=== PATIENT | female | born 1935 | race Caucasian/White ===

== ENCOUNTER 2019-06-04 19:40 | Inpatient (IN) ==
[2019-06-04] MEDS ORDERED: ZOFRAN IV ONE (20:14)
[2019-06-04] MEDS ORDERED: MORPHINE IV ONE (20:14)
--- NOTE | 2019-06-04 20:24 | PROVIDER DOCUMENTATION ---
This chart was entered by Yvette Jin Scribe, acting as scribe for Erwin Aden MD. HPI-Abdominal Pain/GI Problem - General Chief Complaint: Abdominal Pain Stated Complaint: FLU LIKE SX Time Seen by Provider: 06/04/19 19:55 Source: patient, family (daughter) Allergies/Adverse Reactions: Patient Allergies Allergy/AdvReac Type Severity Reaction Status Date / Time Sulfa (Sulfonamide AdvReac ITCHING Verified 06/04/19 19:47 Antibiotics) Home Medications: Home Medication List Medication Instructions Recorded Confirmed Last Taken Type ATORVAstatin [Lipitor] 40 mg PO DAILY 03/31/19 03/31/19 Unknown History Amlodipine Besylate 1 tab PO DAILY 03/31/19 03/31/19 Unknown History Lisinopril 1 tab PO DAILY 03/31/19 03/31/19 Unknown History Omeprazole 1 tab PO DAILY 03/31/19 03/31/19 Unknown History Dicyclomine [Bentyl] 10 mg PO TID PRN PRN #15 cap 04/01/19 Unknown Rx - History of Present Illness-ABD Nature of Presenting Problems: 84yof presents to ED cc abdominal pain, nausea, vomiting, chills, constipation that started after eating lunch at noon today and is getting worse. Pt reports pain is 8/10. Daughter is at bedside and reports pt has hx of chronic back pain and dementia. Pt denies chest pain/SOB/cough/wheezing/dysuria. Pt looks unwell upon exam. Abdominal Pain Onset Location: reports: periumbilical Pain Radiation: reports: no radiation Quality of Pain: reports: sharp, tightness Severity in ED: reports: moderate Onset/Duration: reports: this afternoon (12pm) Timing: reports: still present, getting worse Activities at Onset: reports: eating Exposure to sick contacts?: No Modifying Factors: improves with: nothing Associated Symptoms: reports: constipation, fever/chills (chills), nausea, vomiting Last BM: 3 days ago Emesis Description: reports: clear Bruising or Bleeding Gums?: No Similar Symptoms Previously?: No Recently seen or treated by another doctor?: No Review of Systems - Adult - REVIEW OF SYSTEMS - ADULT Constitutional: reports: see HPI, chills. denies: fever, fatique Eyes: reports: no symptoms reported Ears, Nose, Mouth & Throat: reports: no symptoms reported Cardiovascular: reports: see HPI. denies: chest pain, palpitations Respiratory: reports: see HPI. denies: cough, shortness of breath, wheezing Gastrointestinal: reports: see HPI, abdominal pain, constipation, nausea, vomiting. denies: diarrhea Genitourinary: reports: see HPI. denies: dysuria, flank pain, hematuria Musculoskeletal: reports: no symptoms reported Integumentary: reports: no symptoms reported Neurological: reports: no symptoms reported Psychiatric: reports: no symptoms reported Endocrine: reports: no symptoms reported Hematologic/Lymphatic: reports: no symptoms reported Allergic/Immunologic: reports: no symptoms reported All Other Systems: Reviewed and Negative Past History - Adult - PAST MEDICAL HISTORY-ADULT Review of Records: reports: Old Records Reviewed, Nursing Assessment Review, Medications Reviewed, Social history reviewed & non-contributory. Major Childhood Illnesses: reports: denies history Cardiovascular: reports: denies history Respiratory: reports: denies history Gastrointestinal: reports: denies history Obstetrical/Gynecological: reports: denies history Genitourinary: reports: denies history Musculoskeletal: reports: denies history Neurological: reports: denies history Endocrine/Immune: reports: denies history Other Conditions: reports: denies history - IMMUNIZATION STATUS Childhood Immunizations: See Nurse Assessment Flu Vaccine: See Nurse Assessment - FAMILY HISTORY Family History: reviewed, not pertinent - SOCIAL HISTORY Smoking: denies Physical Exam-General - PHYSICAL EXAM-ADULT Initial Vital Signs Reviewed: Yes - CONSTITUTIONAL General Appearance: alert. negative: appears well, anxious, combative - EYES Eyes: PERRL/EOMI, pink conjunctivae. negative: photophobia - HEAD, EARS, NOSE, MOUTH & THROAT HENMT: normocephalic/atraumatic, moist mucous membranes. negative: angioedema - NECK Neck: normal inspection - RESPIRATORY Respiratory: chest non-tender, lungs clear, normal breath sounds. negative: stridor, wheezing - CARDIOVASCULAR Cardiovascular: normal peripheral pulses, regular rate, rhythm, no edema. negative: bradycardia, tachycardia - GASTROINTESTINAL (ABDOMEN) Abdominal Exam: abnormal bowel sounds (increased), distended. negative: normal bowel sounds, rigid - MUSCULOSKELETAL Back Exam: normal inspection, no CVA tenderness, no vertebral tenderness Extremity: normal inspection, normal capillary refill. negative: deformity - SKIN Integumentary: normal color. negative: diaphoresis, jaundice - PSYCHIATRIC Psych/Mental Status: normal mood/affect, oriented x 3. negative: anxious, disheveled Progress - PLAN OF CARE/RESULTS Progress/Plan/Lab Results: Vital Signs - 8 hr 06/04/19 19:44 Temperature 98.7 F Pulse Rate 88 Respiratory Rate 20 Blood Pressure 158/81 O2 Sat by Pulse Oximetry 96 Orders Category Date Time Status Saline Loc DIRECTED Care 06/04/19 20:05 Active NPO Diet 06/04/19 20:05 Active CBC WITH ELECTRONIC DIFF [HEME] Stat Lab 06/04/19 20:05 Ordered COMPREHENSIVE METABOLIC PANEL [CHEM] Stat Lab 06/04/19 20:[address] Stat Lab 06/04/19 19:41 Uncollected LIPASE [CHEM] Stat Lab 06/04/19 20:05 Uncollected URINALYSIS W/POSS RFLX CULT [URINALYSIS] Stat Lab 06/04/19 20:05 Uncollected Morphine Med 06/04/19 20:14 Discontinued 4 mg IV NOW ONE Ondansetron [Zofran] Med 06/04/19 20:14 Discontinued 4 mg IV NOW ONE Result Diagrams: 06/04/19 20:20 06/04/19 20:20 - CONSULTS/PCP/HOSPITALIST Notification #1 *Consult/PCP/Hospitalist*: Dr. Shaw, surgeon bone worker Time Discussed: 23:25 Reason/Comments: admit to hospitalist at [facility] Consult Disposition: other Departure - Departure Date of Disposition Decision: 06/04/19 Time of Disposition Decision: 00:04 DIAGNOSIS: Small bowel perforation Disposition: ADMITTED INPATIENT Certified Medical Emergency: Emergent Condition: Stable Additional Instructions: ED Follow Up Instructions: You have been treated by a care provider in the Emergency Department. These instructions are being provided to you so you can have an understanding of how to care for yourself upon discharge. Upon discharge from the Emergency Department, you are responsible for making arrangements for follow-up care by a physician of your choice. Take all prescribed medications as directed. Return to the Emergency Department immediately for any new or worsening symptoms. You may call the Physician Referral phone number at [phone] to obtain a list of Physicians who are taking new patients. Referrals and Follow-Ups: Yuri Allen DO [Primary Care Provider] - - Critical Care Note This patient required my direct & personal management of CC.: No Attestation - Physician/ MAURY Attestation Patient care was provided by Advanced Practice Provider:: No The physician spent face to face time with patient:: Yes Advanced Practice Provider documentation review:: Supervising physician onsite and consulted in the evaluation and care of this patient. The physician did have a face to face encounter with the patient. This chart was documented by the indicated scribe, (Yvette Jin, Peña) and accurately reflects the services I performed and decisions made by me, Erwin Aden MD, as attested by the provider's signature.
[2019-06-04 20:36] LABS: BASO# 0.03 X1000 (0.0-0.2); BASO% 0.2 % (0.0-0.8); EOS# 0.01 X1000 (0.0-0.7); EOS% 0.1 % (0.0-10.0); HEMATOCRIT 33.5 % (37.0-47.0); HEMOGLOBIN 10.6 g/dL (12.0-16.0); IMM GRAN# 0.03 X1000 (0.0-0.04); IMM GRAN% 0.2 % (0.0-0.5); LYMPH# 0.66 X1000 (1.2-3.4); LYMPH% 3.8 % (20.5-51.1); MCHC 31.6 g/dL (33-37); MCV 82.3 FL (81-99); MONO# 0.66 X1000 (0.11-0.59); MONO% 3.8 % (1.7-9.3); MPV 10.3 FL (7.4-10.4); NEUT% 91.9 % (42.2-75.2); PLT 273 X1000 (130-400); RBC 4.07 XMIL (4.2-5.4); RDW 15.4 % (11.5-14.5); WBC 17.49 X1000 (4.8-10.8)
[2019-06-04 21:02] LABS: AGAP 14; ALBUMIN 4.8 g/dL (3.5-5.0); ALKALINE PHOSPHATASE 82 U/L (32-104); BUN 25 mg/dL (8-22); CALCIUM 9.4 mg/dL (8.8-10.2); CHLORIDE 104 mmol/L (98-107); COSMO 288; CREATININE 0.7 mg/dL (0.5-0.9); ESTIMATED GFR > 60; GLUCOSE 166 mg/dL (70-104); GOT 21 U/L (10-30); GPT 13 U/L (10-36); LIPASE 91 U/L (13-60); POTASSIUM 3.8 mmol/L (3.5-5.1); SODIUM 140 mmol/L (136-145); TCO2 22 mmol/L (25-35); TOTAL PROTEIN 7.6 g/dL (6.3-8.3)
[2019-06-04 21:42] LABS: INFLUENZA A NEGATIVE (NEGATIVE); INFLUENZA B NEGATIVE (NEGATIVE)
[2019-06-04 22:27] LABS: URINE SOURCE CLEAN CATCH
[2019-06-04 22:52] LABS: BILIRUBIN URINE NEGATIVE (NEGATIVE); BLOOD URINE NEGATIVE (NEGATIVE); COLOR YELLOW; GLUCOSE URINE NEGATIVE (NEGATIVE); KETONE URINE 20 mg/dL (NEGATIVE); LEUKOCYTES URINE NEGATIVE (NEGATIVE); NITRITE URINE NEGATIVE (NEGATIVE); PROTEIN URINE TRACE mg/dL (NEGATIVE); SP GRAVITY URINE 1.024; TURBIDITY URINE CLEAR (CLEAR); UROBILINOGEN URINE NORMAL (NORMAL)
[2019-06-04 22:53] LABS: UR EPITHELIAL CELLS <10 /HPF (<10); URINE BACTERIA NEGATIVE /HPF; URINE RBC <10 /HPF (<10); URINE WBC <10 /HPF (<10)
[2019-06-04] MEDS ORDERED: ZOSYN 3.375 GM in NS 50 ML IV ONE (23:34)
[2019-06-05] MEDS ORDERED: NS 1,000 ML IV ONE (00:08)
[2019-06-05] MEDS ORDERED: ZOFRAN IV PRN (00:08)
[2019-06-05] MEDS ORDERED: MORPHINE IV PRN (00:08)
[2019-06-05] MEDS ORDERED: ZOSYN 3.375 GM in NS 50 ML IV SCH (00:15)
[2019-06-05] MEDS: ZOFRAN IV PRN ×2 (04:22→16:04)
[2019-06-05] MEDS: MORPHINE IV PRN (05:15)
[2019-06-05] MEDS: ZOSYN 3.375 GM in NS 50 ML IV SCH ×4 (05:49→13:27)
[2019-06-05] MEDS: SODIUM CHLORIDE 0.9% INJ SCH (05:56)
[2019-06-05] MEDS: PROTONIX IV SCH ×2 (05:56→17:05)
--- NOTE | 2019-06-05 06:46 | GENERAL SURGERY CONSULTATION ---
DATE: 06/05/2019 CHIEF COMPLAINT: Abdominal pain. REASON FOR CONSULTATION: Possible small-bowel perforation. HISTORY OF PRESENT ILLNESS: This 84-year-old female who is overall in good health. She developed onset of abdominal pain that radiated into her back earlier today. She came to the ER where a CT scan was obtained that showed some extraluminal air in the retroperitoneum around the duodenum, really posterior and cephalad of the pancreas. Concerning for possible perforated small bowel diverticulum. She has had no previous episodes. No recent endoscopy. No GI bleed. Otherwise has been in her usual state of health. MEDICAL HISTORY: She has high blood pressure, hyperlipidemia, but no other cardiac or pulmonary issues. SURGICAL HISTORY: She has what sounds like an inguinal hernia repair in the distant past. SOCIAL HISTORY: She was a smoker, again in the distal past, but none current. She has attentive family, 2 daughters at the bedside. FAMILY HISTORY: Is reviewed and negative for cancer. REVIEW OF SYSTEMS: A 10-point review of systems performed, negative other than what is mentioned in her HPI. OBJECTIVE: General: She is afebrile, pulse fluctuated. It has been from mostly in the 60s to the 90 range. Blood pressure is 120s to 130 systolic most recent. Oxygen saturations high 90s on 2 L. General: She is an elderly-appearing female in no acute distress. She is 100 pounds, 5 foot 2. HEENT: No scleral icterus or cervical mass. Cardiovascular: Normal rate. Pulmonary: No increased work of breathing. Abdomen: Soft, mildly distended, but nontender. There is no peritonitis. Integument: Warm and dry. Psychiatric: Appropriate affect. Neurologic: No gross deficits. Lymphatic: No cervical or axillary adenopathy. Peripheral vascular: No lower extremity edema. White count 17, hematocrit 33, this is down slightly from baseline creatinine 0.7. LFTs are normal. Her lipase mildly elevated at 91. Urinalysis negative for nitrites and leukocytes. Flu A and B were negative. CT scan shows a retroperitoneal gas containing collection that is posterior superior to the body of the pancreas. It does extend slightly inferior as well and really this seems to be adjacent to the 3rd portion of the duodenum. I do not see any free air, free fluid. ASSESSMENT AND PLAN: This is an 84-year-old female with a retroperitoneal small bowel perforation, most likely duodenal. She denies any ingestion of any foreign bodies. I do not see anything on her scan that suggests that she does not have peritonitis and hemodynamically she is stable. She says currently she is feeling much better. Continue on Zosyn. I have asked to place a nasogastric tube to decompress her stomach and limit the amount of effluent that will pass the perforation and we will observe going forward. Typically speaking with retroperitoneal perforation these will resolve with medical management alone. However, if she clinically deteriorated or developed worsening abdominal exam we did discuss the possibility of an emergent surgical exploration. cc: Álvaro Shaw MD
--- NOTE | 2019-06-05 07:41 | Diag Imaging Result Doc PS360 ---
EXAM: CHEST-1 VIEW - 06/05/2019 HISTORY: NGT placement TECHNIQUE: Portable exam for nasogastric tube placement COMPARISON: None. FINDINGS: The tip of the nasogastric tube is at the expected location of the gastroesophageal junction. IMPRESSION: Tip of nasogastric tube at gastroesophageal junction. The tube should be advanced several centimeters for more optimal positioning. Electronically signed by Chuck Jimenez 06/05/2019 7:39 AM
[2019-06-05] MEDS ORDERED: DUONEB (A & A) INH PRN (08:22)
[2019-06-05] MEDS ORDERED: TYLENOL PR PRN (08:22)
[2019-06-05] MEDS ORDERED: NS 1,000 ML IV SCH (08:30)
[2019-06-05 09:19] LABS: BASO# 0.01 X1000 (0.0-0.2); BASO% 0.1 % (0.0-0.8); HEMATOCRIT 33.1 % (37.0-47.0); HEMOGLOBIN 10.4 g/dL (12.0-16.0); IMM GRAN# 0.03 X1000 (0.0-0.04); IMM GRAN% 0.2 % (0.0-0.5); LYMPH# 0.49 X1000 (1.2-3.4); LYMPH% 2.9 % (20.5-51.1); MCH 26.1 PG (27-31); MCHC 31.4 g/dL (33-37); MCV 83.2 FL (81-99); MONO# 0.67 X1000 (0.11-0.59); MONO% 3.9 % (1.7-9.3); MPV 10.9 FL (7.4-10.4); NEUT# 15.87 X1000 (1.4-6.5); NEUT% 92.9 % (42.2-75.2); PLT 239 X1000 (130-400); RBC 3.98 XMIL (4.2-5.4); RDW 15.6 % (11.5-14.5); WBC 17.07 X1000 (4.8-10.8)
--- NOTE | 2019-06-05 09:19 | Diag Imaging Result Doc PS360 ---
EXAM: CT ABD/PELVIS W/IV CONT ONLY - 06/04/2019 HISTORY: abdominal pain, leukocytosis TECHNIQUE: CT abdomen/pelvis with intravenous contrast COMPARISON: None. FINDINGS: The visualized lung bases appear clear except for mild dependent atelectasis. There are no substantial abnormalities of the liver (other than tiny cyst), spleen, or adrenal glands identified. There is wall thickening at the proximal most jejunum there is ill-defined inflammation/edema around the proximal jejunum, with extension into the mesentery. There is a moderate amount of extraluminal gas adjacent to the superior margin of the proximal jejunum, and there is extension of extraluminal gas anteriorly and inferiorly along the mesentery. There is a 1.2 cm structure at the superior margin of the proximal jejunum which may represent an inflamed diverticulum or possibly an ulcer. These findings are compatible with inflammation with perforation at the proximal jejunum. There is no evidence of bowel obstruction. There is extensive colonic diverticulosis. There is no evidence of colonic diverticulitis. The inflammation/edema around the proximal jejunum abuts the pancreatic body and tail. The pancreas itself demonstrates homogeneous enhancement. There are no calcified gallstones or pericholecystic inflammation identified. The common bile duct is mildly prominent, no discrete etiology for which is apparent. There the bilateral kidneys enhance homogeneously. There are atherosclerotic calcifications noted. There are lumbar spine postsurgical changes noted. IMPRESSION: Inflammation with perforation at proximal most jejunum. This likely originates as jejunal diverticulitis or possibly perforated jejunal ulcer. Extensive colonic diverticulosis, but no evidence of colonic diverticulitis. The on-call radiologist provided preliminary results at 11:33 PM on 06/04/2019. This exam was performed using automated exposure control, adjustment of mA or kV according to patient size, and/or use of iterative reconstruction technique. Electronically signed by Chuck Jimenez 06/05/2019 9:16 AM
[2019-06-05 09:26] LABS: AGAP 14; BUN 20 mg/dL (8-22); CALCIUM 8.6 mg/dL (8.8-10.2); CHLORIDE 104 mmol/L (98-107); COSMO 282; CREATININE 0.8 mg/dL (0.5-0.9); ESTIMATED GFR > 60; GLUCOSE 126 mg/dL (70-104); POTASSIUM 3.6 mmol/L (3.5-5.1); SODIUM 139 mmol/L (136-145); TCO2 21 mmol/L (25-35)
--- NOTE | 2019-06-05 09:30 | PROGRESS NOTE ---
DATE: 06/05/2019 SUBJECTIVE: This patient is still having abdominal distention, but she does have some bowel sounds, but decreased. Surgery Department evaluated this patient. I do not see any signs of peritonitis. She is answering all my questions. Family members at the bedside. OBJECTIVE: Vital Signs: Temperature 98.8 degrees, pulse 103, respiratory rate 20, blood pressure 129/72, oxygen saturation 91 on room air. HEENT: Head normocephalic, no trauma. PERRLA. Neck: Supple. No JVD. No masses. Central trachea. Chest: Clear to auscultation. No wheezing. No rales. Cardiovascular: RRR. Abdomen: Soft. It is slightly distended. Decreased bowel sounds. No signs of peritoneal irritation. Extremities: No edema, no clubbing, no cyanosis. Neurological examination: This patient is alert. She is oriented x3. No focal deficits. LABORATORY: Pending lab work today. ASSESSMENT AND PLAN: 1. Retroperitoneal small bowel perforation. We will continue to monitor. Surgery Department on board, and for now is going to be treated medically. I discussed the case with the family, and they understand that in case of more abdominal pain or abnormal lab work, likely we need to go to the operating room to fix it. 2. Hypertension, stable. She is on nothing by mouth. We will monitor. 3. Dyslipidemia. Aware. 4. History of dementia. Aware. Overall, this patient seems to be stable. Vital signs are stable. I just requested a laboratory. We will continue with antibiotics and IV fluids. I will continue with normal saline and I will add Clinimix. cc: Dru oGld MD
[2019-06-05 09:56] LABS: LYMPHS 4 % (21-51); MONO 5 % (1-9); SEGS 91 % (42-75)
[2019-06-05 09:57] LABS: ANISOCYTOSIS 1+; HOWELL-JOLLY BODIES OCCASIONAL; LARGE PLATELETS OCCASIONAL; MICROCYTOSIS 1+
[2019-06-05] MEDS: CLINIMIX E 4.25%-5% SOLUTION 1,000 ML IV SCH (10:10)
--- NOTE | 2019-06-05 10:14 | Diag Imaging Result Doc PS360 ---
EXAM: CHEST-PORTABLE - 06/05/2019 HISTORY: Verify NG tube placement TECHNIQUE: Portable exam for nasogastric tube placement COMPARISON: Prior exam of 06/05/2019 FINDINGS: The nasogastric tube has been advanced. The tip of the nasogastric tube is now at the expected location of the proximal to mid stomach. IMPRESSION: Nasogastric tube extending to the proximal to mid stomach. Electronically signed by Chuck Jimenez 06/05/2019 10:12 AM
[2019-06-05] MEDS: NS 1,000 ML IV SCH ×2 (10:16→13:26)
--- NOTE | 2019-06-05 10:56 | HISTORY AND PHYSICAL ---
PRIMARY CARE PROVIDER: Dr. Allen. DATE AND TIME: 06/05/2019 at 0530. CHIEF COMPLAINT: Abdominal pain, nausea and vomiting. HISTORY OF PRESENT ILLNESS: Ms Sandoval is an 84-year-old female who presented to the ER at [place] yesterday evening with complaints of abdominal pain and nausea and vomiting. The patient states this pain was in the center of her abdomen at the level of her umbilicus, though did feel it was located more toward her back. She had reported the episode of nausea, vomiting today though they denied any hematemesis or coffee-ground appearing emesis. They denied her having any known diarrhea, hematochezia or melena. States that actually she did not have a bowel movement for a few days and had been constipated recently. The patient's daughter actually reported that she does have some chronic low back pain and approximately 1 week ago, she did have some reported similar abdominal pain that was around her umbilical area, but was located more posteriorly toward her back. She also was complaining of some hip pain. She did have some nausea and vomiting at this time. The daughter states she had complained of this for approximately 1 day though this subsided and she had not reported any complaints until she began having abdominal pain today. They denied her having any fever or body aches but had reported her feeling chilled. Though she denies any dizziness or headache, she denies any shortness of breath or cough. She has reported a nonproductive cough. She denies any dysuria or urinary frequency. She denies any pain, numbness, tingling or swelling in the extremities. The patient's daughters also state that she does have some problems with dementia and that this has been worse since her most recent surgery. The patient was alert and oriented to person and time. She could not tell me that she was at the hospital or which hospital she was that. Though other than this, she was able to answer questions appropriately and follow commands. After she presented to the ER at [place], they did perform labs that did show [place] [address]. She did have reported abdominal pain as well as abdominal distention. A CT of the abdomen and pelvis with IV contrast was performed which did show extraluminal gas within the mesentery inferior and deep to the pancreatic body and tail. The findings were suspicious for enteritis of the jejunum with proximal jejunum perforation possibly associated with a diverticulum. Pancreatitis could not be excluded. This is per Radiology. Following those findings, they did contact Dr. Shaw of Surgery. He was made aware of the patient. The patient was transferred to [facility] and placed for inpatient admission to PVC unit for close monitoring. Dr. Shaw has seen the patient here at [facility] has ordered for her to have an NG tube. This has since been placed. The patient is tolerating NG tube well at this time. We are awaiting a chest x-ray for NG tube confirmation and placement. REVIEW OF SYSTEMS: A 14 point review of systems was conducted with the patient and all were negative except for pertinent positives mentioned in the above HPI. PAST MEDICAL HISTORY: 1. Hypertension. 2. Hyperlipidemia. 3. Dementia. 4. Gastroesophageal reflux disease. 5. History of diverticulitis. 6. Cataracts. PAST SURGICAL HISTORY: 1. Total of 4 low back surgeries. 2. Cataract surgery. 3. A right inguinal hernia repair. SOCIAL HISTORY: The patient is a former smoker, she was previously a 1 pack per day smoker though quit smoking 40 years ago. There is no known alcohol or illicit drug use. FAMILY HISTORY: The patient's mother did have a history of hypertension and stroke. Her father had a history of heart disease and did pass away from a myocardial infarction at age 63. ALLERGIES: Patient has allergies to sulfa. HOME MEDICATIONS: 1. Amlodipine 5 mg p.o. daily. 2. Lipitor 40 mg p.o. daily. 3. Aricept 5 mg p.o. daily. 4. Lisinopril 20 mg p.o. daily. 5. Omeprazole 20 mg p.o. daily. DIAGNOSTIC DATA: White blood cell count 63268, hemoglobin 10.6, hematocrit 33.5, platelet count is 273,000. Sodium is 140, potassium 4.8, chloride 104, serum bicarb 22, BUN 25, creatinine 0.7 with a GFR of greater than 60, glucose 166, calcium 9.4. Liver function tests within normal limits. Troponin less than 0.01. Lipase is 91. Urinalysis was obtained via clean catch, was positive for trace protein and ketones, was negative for glucose, blood, nitrites, leukocytes, white blood cells, bacteria. Influenza A and B screen was negative. CT abdomen and pelvis did show extraluminal gas within the mesentery, inferior and deep to the pancreatic body and tail. The findings were noted to be suspicious for enteritis of the jejunum with proximal jejunum perforation, possibly associated with a diverticulum, though pancreatitis could not to be excluded. She was also noted to have intensive colonic diverticulosis without diverticulitis. We are awaiting a chest x-ray to confirm NG tube placement as well. PHYSICAL EXAMINATION: VITAL SIGNS: Temperature 98.4 degrees, heart rate 105, respirations 23, blood pressure is 125/61 with a MAP of 75, oxygen saturation is 97% on room air. GENERAL: Ms. Sandoval is a pleasant 84-year-old female. She was resting in the inpatient bed. She was in no acute distress though she was resting with her eyes closed, was easily arousable with verbal stimulation. Once awoken, she was alert and oriented to person, time and situation though could not tell me at this time that she was in the hospital or which hospital she was at. Other than that, she was able to answer questions appropriately and follow commands. HEENT: Head is atraumatic, normocephalic. Pupils are equal, round, reactive to light, were 2 mm bilaterally and brisk. Oral mucosa is slightly dry. Oropharynx is clear. NECK: Supple. Trachea midline. CARDIOVASCULAR: Patient has S1, S2 present. No murmurs, gallops, rubs appreciated with a regular rate and rhythm. PULMONARY: Patient has symmetrical chest expansion bilaterally. Lung sounds in right upper lung green did have expiratory rhonchi noted. This was not present on the left, though she did have some decreased breath sounds in the bilateral bases as well. ABDOMEN: Soft, though it is distended. She was nontender upon palpation. Bowel sounds were present in all 4 quadrants, were slightly hyperactive. EXTREMITIES: No cyanosis or edema noted. Pulse, motor and sensory were intact in all extremities. Radial and pedal pulses were 2+ bilaterally. INTEGUMENTARY: The patient's skin is pink, warm, and dry. NEUROLOGICAL: Patient is alert and oriented to person, time and situation though was not oriented to place. She could not tell me that she was in the hospital or which hospital she was at, though other than this, she did respond to questions appropriately and follow commands appropriately. She was able to move all extremities. There were no focal neurological deficits noted. ASSESSMENT AND PLAN: 1. Small-bowel perforation. For this, we have placed the patient with antibiotic coverage of Zosyn. She has had blood cultures obtained as well. She will remain n.p.o. We will provide gentle IV fluid hydration as well as p.r.n. pain medications and antiemetics. The surgeon, Dr. Shaw, has been consulted. He has seen the patient. He did order for the patient to have an NG tube placed as well. At this time, this has been performed and the patient is awaiting a chest x-ray for confirmation of her tube placement. We will await further evaluation and recommendations from Dr. Shaw. We will continue to follow along. 2. Leukocytosis. This is likely secondary to her possible small-bowel perforation as well as it could be reactive secondary to her episodes of nausea and vomiting. Urinalysis did not show any signs of infection. We are awaiting a chest x-ray as well. We will continue with antibiotics as mentioned above. Blood cultures have been obtained. We will continue to follow. 3. Nausea, vomiting. We have placed p.r.n. antiemetics. We will continue with some gentle intravenous hydration as well. She is n.p.o. We will implement aspiration precautions as well. 4. History of hypertension. The patient's blood pressure is within normal limits at this time with the last 2 readings being in the 120 systolically. She is n.p.o. at this time due to her possible small-bowel perforation. We will hold any oral medications at this time. We will monitor blood pressure closely and continue to follow. 5. Deep vein thrombosis prophylaxis will be provided with sequential compression devices. The patient has been placed on PVC unit for close monitoring. We will repeat a CBC and BMP in the morning. Further orders and recommendations pending hospital course, diagnostic studies, and physician evaluation. Dictated by JASMEET Lopez for Alex Gaitan MD I have performed a face to face diagnostic evaluation. Labs/ Xray- reviewed, Exam- Chest- clear, CV- regular, Abdomen- diffuse tenderness. A/P- Small bowel perforation. Admit- NPO, IV ABX, surgery consult. Dr. Gaitan cc: Alex Gaitan MD [facility]
[2019-06-06] MEDS: ZOSYN 3.375 GM in NS 50 ML IV SCH ×4 (00:46→18:33)
[2019-06-06] MEDS: NS 1,000 ML IV SCH ×2 (04:56→07:24)
[2019-06-06] MEDS: SODIUM CHLORIDE 0.9% INJ SCH (06:20)
[2019-06-06] MEDS: PROTONIX IV SCH ×2 (06:20→18:34)
[2019-06-06 06:39] LABS: BASO# 0.01 X1000 (0.0-0.2); BASO% 0.1 % (0.0-0.8); EOS# 0.01 X1000 (0.0-0.7); EOS% 0.1 % (0.0-10.0); HEMATOCRIT 30.7 % (37.0-47.0); HEMOGLOBIN 9.5 g/dL (12.0-16.0); IMM GRAN# 0.02 X1000 (0.0-0.04); IMM GRAN% 0.2 % (0.0-0.5); LYMPH# 0.81 X1000 (1.2-3.4); LYMPH% 6.7 % (20.5-51.1); MCH 26.1 PG (27-31); MCHC 30.9 g/dL (33-37); MCV 84.3 FL (81-99); MONO# 0.27 X1000 (0.11-0.59); MONO% 2.2 % (1.7-9.3); MPV 10.8 FL (7.4-10.4); NEUT% 90.7 % (42.2-75.2); PLT 217 X1000 (130-400); RBC 3.64 XMIL (4.2-5.4); WBC 12.12 X1000 (4.8-10.8)
[2019-06-06 07:03] LABS: AGAP 12; BUN 20 mg/dL (8-22); CALCIUM 8.4 mg/dL (8.8-10.2); CHLORIDE 107 mmol/L (98-107); COSMO 286; CREATININE 0.8 mg/dL (0.5-0.9); ESTIMATED GFR > 60; GLUCOSE 102 mg/dL (70-104); POTASSIUM 3.3 mmol/L (3.5-5.1); SODIUM 142 mmol/L (136-145); TCO2 23 mmol/L (25-35)
[2019-06-06] MEDS: CLINIMIX E 4.25%-5% SOLUTION 1,000 ML IV SCH (09:23)
[2019-06-06] MEDS: POTASSIUM CHLORIDE 20 MEQ in NS 1,000 ML IV SCH (09:23)
--- NOTE | 2019-06-06 09:24 | PROGRESS NOTE ---
DATE: 06/06/2019 SUBJECTIVE: This patient is feeling better. White blood cell count is trending down. Her abdomen is not painful. Surgery department also has evaluated this patient. No signs of peritonitis. She is answering all of my questions. Family members at the bedside. OBJECTIVE: Vital Signs: Temperature 98.8 degrees, pulse 84, respiratory rate 18, blood pressure 129/66, oxygen saturation 96 on room air. HEENT: Head normocephalic. No trauma. PERRLA. Neck: Supple. No JVD. No masses. Central trachea. Chest: Clear to auscultation. No wheezing. No rales. Cardiovascular: RRR. Abdomen: Soft. Slightly distended. Decreased bowel sounds. No signs of peritoneal irritation. Extremities: No edema, no clubbing, no cyanosis. Neurological Examination: The patient is alert. She is oriented x3. No focal deficits. Laboratory: WBC 12.1, hemoglobin 9.5, hematocrit 30.7, platelets 217,000. Sodium 142, potassium 3.3, chloride 107, bicarbonate 23, BUN 20, creatinine 0.8, glucose 102, calcium 8.4. ASSESSMENT AND PLAN: 1. Retroperitoneal small bowel perforation. We will continue to monitor. Surgery department on board. For now, we are going to treat this medically. She will have an abdominal study with contrast to see if the lesion is leaking. For now, we will continue with the same management. 2. Hypertension, stable. 3. Dyslipidemia. Aware. 4. History of dementia. Aware. 5. Gastroesophageal reflux disease. We have placed this patient on a proton pump inhibitors twice a day. 6. The patient seems to be getting better. Continue with antibiotics. Continue with intravenous fluids for now. We will monitor this patient closely. She is hypokalemic and I will add potassium to her fluids. cc: Dru Gold MD
--- NOTE | 2019-06-06 14:59 | GENERAL SURGERY PROGRESS NOTE ---
DATE: 06/06/2019 SUBJECTIVE: She feels okay. No pain. No fevers documented overnight. No tachycardia. OBJECTIVE: Vital signs: Blood pressure 162/79, oxygen saturation 95% on room air. General: She is alert. NG tube output has been minimal. Cardiovascular: Normal rate. Abdomen: Soft, nontender, nondistended. Integument: Warm and dry. LABORATORY: White count is down to 12, hematocrit is 30. Creatinine 0.8. ASSESSMENT AND PLAN: This is an 84-year-old female with apparent contained duodenal perforation in the 3rd of 4th portion into the retroperitoneum. We will obtain a water-soluble contrasted study today. If it shows no evidence of ongoing leak we will remove her NG tube and will slowly advance her diet. Otherwise, continue antibiotics and bowel rest. cc: Álvaro Shaw MD
--- NOTE | 2019-06-06 15:02 | Diag Imaging Result Doc PS360 ---
EXAM: SMALL BOWEL SERIES ONLY HISTORY: duodenal perforation TECHNIQUE: Six films COMPARISON: None. FINDINGS: Oral contrast placed in the nasogastric tube. Films through two hours obtained. The small bowel loops are not dilated. Normal mucosal pattern. No mass identified. Normal emptying into the colon. No extravasation. IMPRESSION: No perforation identified. Electronically signed by Khadar Vasquez 06/06/2019 3:00 PM
[2019-06-06] MEDS: MORPHINE IV PRN ×2 (18:28→22:15)
[2019-06-07] MEDS: ZOSYN 3.375 GM in NS 50 ML IV SCH ×4 (02:11→19:45)
[2019-06-07] MEDS: POTASSIUM CHLORIDE 20 MEQ in NS 1,000 ML IV SCH (05:36)
[2019-06-07] MEDS: PROTONIX IV SCH ×2 (05:36→18:50)
[2019-06-07] MEDS: SODIUM CHLORIDE 0.9% INJ SCH (05:36)
[2019-06-07 07:09] LABS: BASO# 0.01 X1000 (0.0-0.2); BASO% 0.1 % (0.0-0.8); EOS# 0.04 X1000 (0.0-0.7); EOS% 0.5 % (0.0-10.0); HEMATOCRIT 31.4 % (37.0-47.0); HEMOGLOBIN 9.7 g/dL (12.0-16.0); IMM GRAN# 0.02 X1000 (0.0-0.04); IMM GRAN% 0.2 % (0.0-0.5); LYMPH# 0.72 X1000 (1.2-3.4); LYMPH% 8.6 % (20.5-51.1); MCH 25.9 PG (27-31); MCHC 30.9 g/dL (33-37); MONO# 0.35 X1000 (0.11-0.59); MONO% 4.2 % (1.7-9.3); MPV 10.6 FL (7.4-10.4); NEUT# 7.26 X1000 (1.4-6.5); NEUT% 86.4 % (42.2-75.2); PLT 193 X1000 (130-400); RBC 3.74 XMIL (4.2-5.4); RDW 15.8 % (11.5-14.5)
[2019-06-07 07:19] LABS: AGAP 14; BUN 14 mg/dL (8-22); CALCIUM 8.6 mg/dL (8.8-10.2); CHLORIDE 106 mmol/L (98-107); COSMO 281; CREATININE 0.5 mg/dL (0.5-0.9); ESTIMATED GFR > 60; GLUCOSE 93 mg/dL (70-104); MAGNESIUM 1.9 mg/dL (1.5-2.7); PHOSPHORUS 1.8 mg/dL (2.7-4.5); POTASSIUM 3.3 mmol/L (3.5-5.1); SODIUM 141 mmol/L (136-145); TCO2 21 mmol/L (25-35)
[2019-06-07 07:40] LABS: LYMPHS 12 % (21-51); SEGS 88 % (42-75)
[2019-06-07] MEDS: MORPHINE IV PRN ×2 (08:16→22:07)
[2019-06-07] MEDS ORDERED: POTASSIUM PHOSPHATE 15 MMOL in NS 250 ML IV ONE (10:45)
--- NOTE | 2019-06-07 13:08 | PROGRESS NOTE ---
DATE: 06/07/2019 SUBJECTIVE: This patient is feeling better. We did a small bowel series yesterday that did not show any perforation. She still has the NG tube and she is still NPO. I will wait for the surgery department to evaluate this patient to see if we are going to be able to remove this tube and start feeding this patient. OBJECTIVE: Vital Signs: Temperature 98.7 degrees, pulse 80, respiratory rate 16, blood pressure 155/74, oxygen saturation 97% on room air. HEENT: Head normocephalic. No trauma. PERRLA. Neck: Supple. No JVD. No masses. Central trachea. Chest: Clear to auscultation. No wheezing. No rales. Cardiovascular: RRR. Abdomen: Soft. Slightly distended. Decreased bowel sounds but present. No signs of peritoneal irritation. Extremities: No edema, no clubbing, no cyanosis. Neurological Examination: The patient is alert. She is oriented x3. No focal deficits. Laboratory: WBC 8.4, hemoglobin 9.7, hematocrit 31.4, platelets 193,000. Sodium 141, potassium 2.3, chloride 106, bicarbonate 21, BUN 14, creatinine 0.5, glucose 93, calcium 8.6, phosphorus 1.8, magnesium 1.9. ASSESSMENT AND PLAN: 1. Retroperitoneal small bowel perforation. We did a small bowel series and there is no evidence of perforation in those images. She still has a nasal cannula and she is still nothing per oral. I will wait for the surgery department to evaluate this patient. Her white blood cell count normalized. Hopefully, we are going to be able to remove the tube soon and start feeding this patient. 2. Hypertension. Stable. 3. Dyslipidemia. Aware. 4. History of dementia. Aware. 5. Gastroesophageal reflux disease. Continue proton pump inhibitors twice a day. 6. Hypokalemia. I will replace the potassium. 7. Hypophosphatemia. I will replace the phosphorus. cc: Dru Gold MD
[2019-06-07] MEDS: CLINIMIX E 4.25%-5% SOLUTION 1,000 ML IV SCH (15:08)
--- NOTE | 2019-06-07 21:40 | GENERAL SURGERY PROGRESS NOTE ---
DATE: 06/07/2019 SUBJECTIVE: Nothing in the way of abdominal pain. No fevers. She had a contrast study yesterday that showed no evidence of leak. PHYSICAL EXAM: Vital signs: She is afebrile. No tachycardia. Blood pressure 155/74, oxygen saturation 97%. General: She is alert. Cardiovascular: Normal rate. Abdomen: Soft, nontender, nondistended with no peritonitis. LABS: White count is 8, hematocrit 31, platelets 193,000, creatinine 0.8. I reviewed her contrasted study. ASSESSMENT/PLAN: An 84-year-old female with small bowel perforation of the most likely duodenum, most likely a diverticula. It seems that it was contained initially and it seems to have resolved with no evidence of extravasation on her contrast study. I removed her NG tube. We will give her sips of clears and advance this as she tolerated over next couple days. We will continue IV antibiotics. cc: Álvaro Shaw MD
[2019-06-08] MEDS: POTASSIUM CHLORIDE 20 MEQ in NS 1,000 ML IV SCH ×3 (02:25→16:26)
[2019-06-08] MEDS: ZOSYN 3.375 GM in NS 50 ML IV SCH ×4 (02:26→20:48)
[2019-06-08] MEDS: PROTONIX IV SCH ×2 (06:24→18:50)
[2019-06-08] MEDS: SODIUM CHLORIDE 0.9% INJ SCH ×2 (06:24→18:50)
[2019-06-08 06:50] LABS: BASO# 0.02 X1000 (0.0-0.2); BASO% 0.4 % (0.0-0.8); HEMATOCRIT 30.7 % (37.0-47.0); HEMOGLOBIN 9.6 g/dL (12.0-16.0); LYMPH# 0.64 X1000 (1.2-3.4); LYMPH% 12.7 % (20.5-51.1); MCH 25.6 PG (27-31); MCHC 31.3 g/dL (33-37); MCV 81.9 FL (81-99); MONO# 0.32 X1000 (0.11-0.59); MONO% 6.4 % (1.7-9.3); MPV 10.7 FL (7.4-10.4); NEUT# 3.95 X1000 (1.4-6.5); NEUT% 78.5 % (42.2-75.2); PLT 214 X1000 (130-400); RBC 3.75 XMIL (4.2-5.4); RDW 15.2 % (11.5-14.5); WBC 5.03 X1000 (4.8-10.8)
[2019-06-08 07:32] LABS: AGAP 13; BUN 12 mg/dL (8-22); CALCIUM 8.2 mg/dL (8.8-10.2); CHLORIDE 104 mmol/L (98-107); COSMO 279; CREATININE 0.5 mg/dL (0.5-0.9); ESTIMATED GFR > 60; GLUCOSE 100 mg/dL (70-104); MAGNESIUM 1.8 mg/dL (1.5-2.7); PHOSPHORUS 2.3 mg/dL (2.7-4.5); POTASSIUM 3.3 mmol/L (3.5-5.1); SODIUM 140 mmol/L (136-145); TCO2 23 mmol/L (25-35)
[2019-06-08] MEDS ORDERED: CALMOSEPTINE OINTMENT TOP PRN (09:02)
[2019-06-08] MEDS ORDERED: KLOR-CON PO ONE (14:03)
[2019-06-08] MEDS ORDERED: SODIUM PHOSPHATE 35 MMOL in NS 250 ML IV ONE (14:03)
[2019-06-08] MEDS: CLINIMIX E 4.25%-5% SOLUTION 1,000 ML IV SCH (15:39)
--- NOTE | 2019-06-08 15:42 | PROGRESS NOTE ---
DATE: 06/08/2019 SUBJECTIVE: Patient reports feeling fine. She just finished a bowel movement. Denies nausea, vomiting, or abdominal pain. OBJECTIVE: Vital Signs: Temperature 98.1 degrees, heart rate 87, respiratory rate 20, blood pressure 142/67, O2 saturation 98% on room air. General: This is an 84-year-old female lying in bed, in no acute distress. Cardiovascular: S1, S2 heard. No murmurs, gallops, or rubs. Regular rate and rhythm. Respiratory: Clear bilaterally to auscultation. No work of breathing or using accessory muscles. Abdomen: Soft, a little bit distended with bowel sounds present, hyperactive. No signs of peritoneal irritation. Extremities: No clubbing, cyanosis, or edema. Peripheral pulses present in both legs. Neurological: The patient is alert, oriented x3. Moves 4 extremities. LABORATORY DATA: Wound white cell count 5.03, hemoglobin 9.6, hematocrit 30.7, platelets 214,000 with BMP that reveals potassium 3.3 with phosphorus 2.3. ASSESSMENT AND PLAN: 1. Retroperitoneal small-bowel perforation. Small bowel x-ray did not show any perforation. General Surgery has decided to remove the NG tube. The patient is on sip of water now, and we will start a clear liquid diet soon as well. We will continue to monitor this patient closely. 2. Hypertension. Blood pressure medication will be restarted. 3. Dyslipidemia. Statin, in this case atorvastatin, will be restarted. 4. History of dementia. Will restart donepezil. 5. Gastroesophageal reflux disease. We will continue with Protonix. 6. Disposition. We are following the lead from General Surgery. cc: Gen Nunez MD MTDD
[2019-06-08] MEDS: LIPITOR PO SCH (20:48)
[2019-06-08] MEDS: MORPHINE IV PRN (21:34)
--- NOTE | 2019-06-08 22:39 | GENERAL SURGERY PROGRESS NOTE ---
DATE: 06/08/2019 SUBJECTIVE: Doing okay. Some confusion overnight. She seems more alert and oriented now. A little bit more discomfort, not related to eating. No fevers. No tachycardia. OBJECTIVE: Vital signs: Blood pressure 142/67. General: She is alert. Cardiovascular: Normal rate. Pulmonary: No increased work of breathing. Abdomen: Her abdomen is soft, nontender, nondistended. LABORATORIES: White count normal at 5. Hematocrit is 30, creatinine 0.5. ASSESSMENT/PLAN: An 84-year-old female with apparent contained perforation of duodenum. No leak on the small-bowel follow-through. She is tolerating some clear liquids. I have encouraged delirium prevention. Discussed these measures with the family. We will keep her on antibiotics and slowly advance her diet as tolerated. cc: Álvaro Shaw MD
[2019-06-09] MEDS: ZOSYN 3.375 GM in NS 50 ML IV SCH ×3 (02:23→18:55)
[2019-06-09] MEDS: POTASSIUM CHLORIDE 20 MEQ in NS 1,000 ML IV SCH (04:38)
[2019-06-09] MEDS: PROTONIX IV SCH ×2 (05:47→18:55)
[2019-06-09] MEDS: SODIUM CHLORIDE 0.9% INJ SCH (05:47)
[2019-06-09 07:09] LABS: BASO# 0.03 X1000 (0.0-0.2); BASO% 0.6 % (0.0-0.8); EOS# 0.09 X1000 (0.0-0.7); EOS% 1.8 % (0.0-10.0); HEMATOCRIT 31.4 % (37.0-47.0); IMM GRAN# 0.02 X1000 (0.0-0.04); IMM GRAN% 0.4 % (0.0-0.5); LYMPH# 0.75 X1000 (1.2-3.4); LYMPH% 15.1 % (20.5-51.1); MCH 25.8 PG (27-31); MCHC 31.8 g/dL (33-37); MCV 80.9 FL (81-99); MONO# 0.46 X1000 (0.11-0.59); MONO% 9.2 % (1.7-9.3); MPV 10.4 FL (7.4-10.4); NEUT# 3.63 X1000 (1.4-6.5); NEUT% 72.9 % (42.2-75.2); PLT 233 X1000 (130-400); RBC 3.88 XMIL (4.2-5.4); RDW 15.2 % (11.5-14.5); WBC 4.98 X1000 (4.8-10.8)
[2019-06-09 07:37] LABS: AGAP 15; ALBUMIN 3.3 g/dL (3.5-5.0); BUN 12 mg/dL (8-22); CALCIUM 8.4 mg/dL (8.8-10.2); CHLORIDE 103 mmol/L (98-107); COSMO 275; CREATININE 0.6 mg/dL (0.5-0.9); ESTIMATED GFR > 60; GLUCOSE 92 mg/dL (70-104); PHOSPHORUS 2.9 mg/dL (2.7-4.5); POTASSIUM 3.6 mmol/L (3.5-5.1); SODIUM 138 mmol/L (136-145); TCO2 20 mmol/L (25-35)
[2019-06-09] MEDS: NS + KCL 20 MEQ 1,000 ML IV SCH (10:14)
[2019-06-09] MEDS: CLINIMIX E 4.25%-5% SOLUTION 1,000 ML IV SCH (12:52)
[2019-06-09] MEDS: PRINIVIL PO SCH (12:53)
[2019-06-09] MEDS: ARICEPT PO SCH (12:53)
--- NOTE | 2019-06-09 14:43 | GENERAL SURGERY PROGRESS NOTE ---
DATE: 06/09/2019 SUBJECTIVE: Doing okay. No fevers. No tachycardia. Blood pressure 126/70. OBJECTIVE: General: She is more alert and oriented. Cardiovascular: Normal rate. Abdomen: Soft, nontender, nondistended with no peritonitis. LABS: White count was normal yesterday. She has not had labs yet this morning. ASSESSMENT/PLAN: An 84-year-old female with apparent duodenal retroperitoneal perforation. Seems to be doing better. There is no ongoing leak noted on her upper GI. She has tolerated clear liquids, advance to soft. Keep her on antibiotics today. If she tolerates soft diet, it would be reasonable to let her go home tomorrow. cc: Álvaro Shaw MD
[2019-06-09] MEDS: MORPHINE IV PRN (20:45)
[2019-06-09] MEDS: LIPITOR PO SCH (20:45)
--- NOTE | 2019-06-09 21:12 | PROGRESS NOTE ---
DATE: 06/09/2019 SUBJECTIVE: The patient reports feeling better. Eating her diet. Denies any other complaints. OBJECTIVE: Vital Signs: Temperature 98.3 degrees, heart rate 80, respiratory rate 20, blood pressure 134/73, O2 saturation 96% on room air. General Examination: This is an 84-year-old female lying in bed, in no acute distress. Cardiovascular: S1, S2 heard. No murmurs, gallops, or rubs. Regular rate and rhythm. Respiratory Exam: Clear bilaterally to auscultation. No work of breathing or using accessory muscles. Abdomen: Soft, nontender to palpation. Bowel sounds present. No organomegaly. Extremities: No clubbing, cyanosis, or edema. Peripheral pulses present in both legs. Neurological: Patient alert and oriented x3. Moves her extremities. LABORATORY DATA: Reviewed. ASSESSMENT AND PLAN: 1. Retroperitoneal small-bowel perforation. The patient is being followed by General Surgery. Patient has been started on clear liquid diet. We will advance diet as tolerated. As per general surgery, if she is doing fine tomorrow she can be discharged from a surgical standpoint. 2. Hypertension. Blood pressure is under control. We will continue to monitor this patient closely. 3. Dyslipidemia. We will continue with home medications. 4. History of dementia. The patient has been restarted on donepezil. 5. Gastroesophageal reflux disease. We will continue with Protonix. DISPOSITION: We will continue to monitor this patient closely. If she tolerated the diet tomorrow, I think she should be good to go home. We will need to switch from IV heparin drip to oral anticoagulation. cc: Gen Nunez MD
[2019-06-10] MEDS: ZOSYN 3.375 GM in NS 50 ML IV SCH ×3 (00:34→12:16)
[2019-06-10] MEDS: NS + KCL 20 MEQ 1,000 ML IV SCH (06:36)
[2019-06-10] MEDS: SODIUM CHLORIDE 0.9% INJ SCH (06:37)
[2019-06-10] MEDS: PROTONIX IV SCH (06:37)
[2019-06-10 07:26] LABS: AGAP 13; ALBUMIN 3.2 g/dL (3.5-5.0); BUN 11 mg/dL (8-22); CALCIUM 8.8 mg/dL (8.8-10.2); CHLORIDE 101 mmol/L (98-107); COSMO 272; CREATININE 0.6 mg/dL (0.5-0.9); ESTIMATED GFR > 60; GLUCOSE 113 mg/dL (70-104); PHOSPHORUS 3.1 mg/dL (2.7-4.5); POTASSIUM 3.8 mmol/L (3.5-5.1); SODIUM 136 mmol/L (136-145); TCO2 22 mmol/L (25-35)
[2019-06-10 07:36] LABS: BASO# 0.01 X1000 (0.0-0.2); BASO% 0.1 % (0.0-0.8); EOS# 0.06 X1000 (0.0-0.7); EOS% 0.8 % (0.0-10.0); HEMATOCRIT 30.8 % (37.0-47.0); HEMOGLOBIN 9.9 g/dL (12.0-16.0); IMM GRAN# 0.02 X1000 (0.0-0.04); IMM GRAN% 0.3 % (0.0-0.5); LYMPH# 0.71 X1000 (1.2-3.4); LYMPH% 9.5 % (20.5-51.1); MCH 25.8 PG (27-31); MCHC 32.1 g/dL (33-37); MCV 80.2 FL (81-99); MONO# 0.58 X1000 (0.11-0.59); MONO% 7.8 % (1.7-9.3); MPV 10.7 FL (7.4-10.4); NEUT# 6.09 X1000 (1.4-6.5); NEUT% 81.5 % (42.2-75.2); PLT 227 X1000 (130-400); RBC 3.84 XMIL (4.2-5.4); WBC 7.47 X1000 (4.8-10.8)
[2019-06-10] MEDS: ARICEPT PO SCH (08:28)
[2019-06-10] MEDS: PRINIVIL PO SCH (08:28)
[2019-06-10] MEDS: MORPHINE IV PRN (10:51)
[2019-06-10 13:20] VITALS: BP 127/67
[2019-06-10] MEDS ORDERED: FLU VACCINE IM ONE (13:22)
[2019-06-10] MEDS ORDERED: PNEUMOVAX 23 IM ONE (13:23)
--- NOTE | 2019-06-11 17:02 | DISCHARGE SUMMARY ---
ADMISSION DATE: 06/05/2019 DISCHARGE DATE: 06/10/2019 DISCHARGE DIAGNOSES: 1. Small bowel perforation. Resolved. 2. Nausea and vomiting. 3. Hypertension. CONSULTATIONS: Dr. Chester Shaw from General Surgery. PROCEDURES: 1. Abdomen and pelvis CT done on admission showed inflammation with perforation at the proximal most jejunum. This likely originated as jejunal diverticulitis or possible perforated jejunal ulcer, and extensive colonic diverticulosis, but no evidence of colonic diverticulitis. 2. Small bowel x-ray showed no perforation identified. HOSPITAL COURSE: Briefly, this is an 84-year-old, female, who developed sudden onset of abdominal pain that radiated to the back, so she decided to come to the emergency department, and she was found to have a small bowel perforation, so she was admitted to the hospital for further evaluation and treatment. She was placed on IV fluids and NPO. She was placed also on nausea medication. Along the day, she started feeling good. Small bowel series indicates no signs of perforation, so this patient was started on sips of water and the next day a clear liquid diet. The patient was tolerating the food very well, so she has been cleared from General Surgery, so she is going to be discharged in stable condition. DISCHARGE PHYSICAL EXAMINATION: vital signs: Temperature 98.5 degrees, heart rate 92, respiratory rate 17, blood pressure 127/67, O2 saturation 95% on room air. General: This is an 84-year-old, female, lying in bed, in no acute distress. Cardiovascular: S1, S2 heard. No murmurs, gallops, or rubs. Regular rate and rhythm. Respiratory: Clear bilaterally to auscultation. No work of breathing or using accessory muscles. Abdomen: Soft. Nontender to palpation. Bowel sounds present. No organomegaly. Extremities: No clubbing, cyanosis, or edema. Peripheral pulses present in both legs. Neurological: Alert and oriented x3. Moves 4 extremities DISCHARGE DISPOSITION: Home to self-care. MEDICATIONS: Resume medications: 1. Levaquin 500 mg 1 tablet p.o. daily for 7 days. 2. Metronidazole 500 mg 1 tablet p.o. b.i.d. or q.12 hours for 7 days. 3. Tramadol 50 mg every 4 hours as needed for pain. 4. Lipitor 40 mg 1 tablet p.o. daily. 5. Lisinopril 20 mg 1 tablet p.o. daily. 6. Omeprazole 20 mg 1 tablet p.o. daily. 7. Amlodipine 5 mg 1 tablet p.o. daily. 8. Donepezil 5 mg 1 tablet p.o. daily. FOLLOWUP: follow up with Dr. Chester Shaw in a week. TIME DISCHARGING PATIENT: 35 minutes. cc: Gen Nunez MD
== END 2019-06-10 13:47 | disposition home or self-care (01) | DRG 382 ==
LOC: P.ED 19:40 → SUATTDRO 06-05 01:23 → 2N 06-05 01:23 → 4N 06-06 11:44
PROVIDERS: ATTEND Internal Medicine